=== PATIENT | male | born 1985 | race Caucasian/White ===

== ENCOUNTER → 2016-07-09 | Outpatient (CLI) | payer OTHER ==
[2016-07-09 16:45] LABS: BASO % 0.3 % (0.0-1.0); EOS # 0.1 10*3/uL (0.0-0.4); EOS % 0.8 % (1.0-4.0); HEMATOCRIT 48.6 % (42.0-52.0); HEMOGLOBIN 15.9 g/dl (14.0-18.0); LYMPH # 1.6 10*3/uL (1.3-4.4); LYMPH % 25.2 % (27.0-41.0); MEAN CELL VOLUME 91.5 fl (80.0-94.0); MEAN CORPUSCULAR HGB 29.9 pg (27.0-31.0); MEAN CORPUSCULAR HGB CONC 32.7 g/dl (33.0-37.0); MEAN PLATELET VOLUME 10.2 fl (9.6-12.3); MONO # 0.5 10*3/uL (0.1-1.0); NEUT # 4.1 10*3/uL (2.3-7.9); NEUT % 65.2 % (47.0-73.0); PLATELET COUNT AUTOMATED 247 10*3/uL (130-400); RED BLOOD COUNT 5.31 10*6/uL (4.50-5.90); RED CELL DISTRI WIDTH 13.1 % (0-14.5); WHITE BLOOD COUNT 6.3 10*3/uL (4.8-10.8)
[2016-07-09 17:02] LABS: FREE T4 0.92 ng/dl (0.76-1.46); THYROID STIM HORMONE (HS) 0.734 uIU/ml (0.358-4.75)
[2016-07-11 05:10] LABS: TESTOSTERONE FREE, (DIRECT) 9.8 pg/mL (8.7-25.1)
== END | disposition home or self-care (01) ==
LOC: LAB 15:48
PROVIDERS: Family Medicine
DX: E03.9 Hypothyroidism, unspecified (principal); R53.83 Other fatigue; E29.1 Testicular hypofunction

== ENCOUNTER → 2016-10-08 | Outpatient (CLI) | payer OTHER ==
[2016-10-08 17:06] LABS: ALKALINE PHOSPHATASE 75 U/L (45-117); BILIRUBIN, TOTAL 0.7 mg/dl (0.2-1.0); BUN 22 mg/dl (7-24); CARBON DIOXIDE 24 mmol/L (21-32); CHLORIDE 109 mmol/L (98-107); EST GLOM FILT AFRICAN AMERICAN > 60 ml/min; FREE T4 0.75 ng/dl (0.76-1.46); GLUCOSE 94 mg/dL (65-99); POTASSIUM 3.8 mmol/L (3.5-5.1); SGOT/AST 57 IU/L (3-35); SGPT/ALT 78 U/L (12-78); SODIUM 142 mmol/L (136-145); TOTAL PROTEIN 7.8 gm/dL (6.4-8.2)
[2016-10-10 12:08] LABS: TESTOSTERONE FREE, (DIRECT) 18.6 pg/mL (8.7-25.1)
== END | disposition home or self-care (01) ==
LOC: LAB 16:09
PROVIDERS: Family Medicine
DX: E29.1 Testicular hypofunction (principal); R53.83 Other fatigue

== ENCOUNTER → 2016-11-19 | Outpatient (CLI) | payer OTHER ==
[2016-11-19 17:02] LABS: FREE T4 0.82 ng/dl (0.76-1.46)
[2016-11-19 17:08] LABS: THYROID STIM HORMONE (HS) 0.819 uIU/ml (0.358-4.75)
== END | disposition home or self-care (01) ==
LOC: LAB 16:04
PROVIDERS: Family Medicine
DX: E03.9 Hypothyroidism, unspecified (principal)

== ENCOUNTER → 2017-01-28 | Outpatient (CLI) | payer OTHER ==
[2017-01-28 16:42] LABS: FREE T4 0.87 ng/dl (0.76-1.46)
[2017-01-28 16:48] LABS: THYROID STIM HORMONE (HS) 0.835 uIU/ml (0.358-4.75)
[2017-01-30 00:05] LABS: TESTOSTERONE FREE, (DIRECT) 24.5 pg/mL (8.7-25.1)
== END | disposition home or self-care (01) ==
LOC: LAB 15:52
PROVIDERS: Family Medicine
DX: E03.9 Hypothyroidism, unspecified (principal); E29.1 Testicular hypofunction

== ENCOUNTER → 2017-04-14 | Outpatient (CLI) | payer OTHER ==
[2017-04-14 16:41] LABS: ALBUMIN 3.9 gm/dl (3.1-4.5); ALKALINE PHOSPHATASE 81 U/L (45-117); BUN 16 mg/dl (7-24); CHLORIDE 106 mmol/L (98-107); CREATININE 1.37 mg/dL (0.70-1.30); POTASSIUM 3.9 mmol/L (3.5-5.1); SGOT/AST 48 IU/L (3-35); SGPT/ALT 47 U/L (12-78); SODIUM 139 mmol/L (136-145); TOTAL PROTEIN 7.6 gm/dL (6.4-8.2)
[2017-04-14 16:49] LABS: THYROID STIM HORMONE (HS) 0.816 uIU/ml (0.358-4.75)
[2017-04-16 00:08] LABS: TESTOSTERONE FREE, (DIRECT) 7.7 pg/mL (8.7-25.1)
== END | disposition home or self-care (01) ==
LOC: LAB 16:08
PROVIDERS: Family Medicine
DX: E29.1 Testicular hypofunction (principal)

== ENCOUNTER → 2020-02-01 | Outpatient (CLI) | payer OTHER | END | disposition home or self-care (01) | LOC: COVID19 00:10 | DX: J02.9 Acute pharyngitis, unspecified (principal); Z20.828 Contact with and (suspected) exposure to other viral communicable diseases ==

== ENCOUNTER → 2020-06-21 | Outpatient (CLI) | payer OTHER | END | disposition home or self-care (01) | LOC: COVID19 14:44 | PROVIDERS: ATTEND Family Medicine | DX: U07.1 COVID-19 (principal) ==